=== PATIENT | male | born 1960 ===

== ENCOUNTER 2018-04-02 09:00 | Inpatient (IN) | payer OTHER ==
[~2018-04-02] VITALS: Ht 177.8 cm; Wt 98.9 kg
[2018-04-10] MEDS ORDERED: DOCUSATE SODIU100 MG PO (11:14)
[2018-04-10] MEDS ORDERED: GABAPENTIN800 MG PO (11:14)
[2018-04-10] MEDS ORDERED: AMOX-CLAV 875-1 EACH PO (11:15)
[2018-04-10] MEDS ORDERED: CLONAZEPAM1 MG PO (11:16)
[2018-04-10] MEDS ORDERED: PERCOCET 5-3251 EACH PO (11:16)
[2018-04-10] MEDS ORDERED: ASA325 M1 PO (11:22)
== END 2018-04-10 13:13 | disposition home or self-care (01) | DRG 460 ==
LOC: PED 04-09 04:50 → O/R 04-09 04:50 → SURH 04-09 07:00 → PED 04-09 16:44
PROVIDERS: Orthopaedic Surgery Orthopaedic Surgery of the Spine
PROC: 0SG10AJ Fusion of 2 or more Lumbar Vertebral Joints with Interbody Fusion Device, Posterior Approach, Anterior Column, Open Approach (ICD-10-PCS; 2018-04-09)
PROC: 0ST20ZZ Resection of Lumbar Vertebral Disc, Open Approach (ICD-10-PCS; 2018-04-09)
PROC: 07DS3ZZ Extraction of Vertebral Bone Marrow, Percutaneous Approach (ICD-10-PCS; 2018-04-09)
PROC: 0SG10A0 Fusion of 2 or more Lumbar Vertebral Joints with Interbody Fusion Device, Anterior Approach, Anterior Column, Open Approach (ICD-10-PCS; principal; 2018-04-09 07:00)
DX: M47.26 Other spondylosis with radiculopathy, lumbar region (principal); M48.061 Spinal stenosis, lumbar region without neurogenic claudication; M51.16 Intervertebral disc disorders with radiculopathy, lumbar region